=== PATIENT | male | born 1955 | race African-American/Black ===

== ENCOUNTER 2019-05-08 22:16 | Emergency (ER) | payer MEDICARE, OTHER ==
[~2019-05-08] VITALS: Ht 182.9 cm; Wt 100.0 kg
[2019-05-08 23:47] LABS: HEMATOCRIT. 42.6 % (42.0-52.0); HEMOGLOBIN. 15.1 g/dL (14.0-18.0); MEAN CORPUSCULAR HEMOGLOBIN 34.7 pg (28.0-32.0); MEAN CORPUSCULAR VOLUME 97.9 fL (80.0-94.0); MEAN PLATELET VOLUME 7.9 fl (7.4-10.4); PLATELET 141 x1000/uL (130-400); RED BLOOD CELL COUNT 4.35 mill/uL (4.7-6.1); RED CELL DISTRIBUTION WIDTH 14.8 % (11.6-14.6)
[2019-05-08 23:54] LABS: CHLORIDE 91 mEq/L (98-107)
[2019-05-08 23:58] LABS: ETHANOL BLOOD 272 mg/dL
[2019-05-09] MEDS ORDERED: SODIUM CHLORIDE 0.9% 1,000 ML IV ONE (00:06)
[2019-05-09 00:35] LABS: PLATELET ESTIMATE NORMAL
[2019-05-09 05:00] VITALS: BP 148/88
== END 2019-05-09 07:57 | disposition home or self-care (01) ==
LOC: ER 22:16
DX: F10.229 Alcohol dependence with intoxication, unspecified (principal); K70.10 Alcoholic hepatitis without ascites; F17.210 Nicotine dependence, cigarettes, uncomplicated; E87.1 Hypo-osmolality and hyponatremia; Y90.8 Blood alcohol level of 240 mg/100 ml or more
CPT/HCPCS: 36415; 70450; 80053; 80320; 85025; 96360; 96361; 99284; J7030; G0480